=== PATIENT | female | born 1995 | race American Indian/Alaskan Native ===

== ENCOUNTER 2019-02-11 06:28 | Emergency (ER) | payer SELFPAY ==
--- NOTE | 2019-02-11 07:17 | XRay Report ---
CHEST 2 VIEWS, 02/11/2019 6:59 AM INDICATION: Cough. Shortness of breath. COMPARISON: None FINDINGS: Support devices: None Heart: The heart is normal in size. Lungs/pleura: The lungs are clear of focal airspace disease or significant pleural effusion. Additional findings: Evaluation of bony structures demonstrates no evidence of acute bony abnormality . IMPRESSION: 1. No evidence of acute cardiopulmonary process. Signer Name: Bobbi Carbajal MD Signed: 02/11/2019 7:13 AM Workstation Name: [employer]
[2019-02-11] MEDS ORDERED: IPRATROPIUM/ALBUTEROL SULFATE 3 ML AMPUL.NEB IH ONE ×2 (07:51→07:54)
[2019-02-11] MEDS ORDERED: predniSONE 20 MG TAB PO ONE (07:55)
[2019-02-11] MEDS ORDERED: ALBUTEROL 2.5 MG/3 ML NEBU IH ONE (08:33)
--- NOTE | 2019-02-11 08:39 | Emergency Department Report ---
ED Shortness of Breath HPI - General Chief Complaint: Dyspnea/Respdistress Stated Complaint: SOB Time Seen by Provider: 02/11/19 07:55 Source: patient Mode of arrival: Ambulatory Limitations: No Limitations - History of Present Illness Initial Comments: 23 yo obese female c/o cough and sob x 3 days. Reports hx of asthma. Last asthma attack few years ago. Out of her asthma medications. She denies fever chills. Denies any recent surgeries, trauma or travel. MD Complaint: shortness of breath, cough Onset/Timin -: days(s) Pain Scale: 0 Consistency: constant Known History Of: asthma Context: recent URI Associated Symptoms: cough Treatments Prior to Arrival: none - Related Data Home Oxygen Therapy: No Previous Rx's Medication Instructions Recorded Last Taken Type Albuterol Sulfate [Proair 90 mcg IH Q4HR PRN 30 Days #1 02/11/19 Unknown Rx Digihaler] aer.pw.bas predniSONE [Deltasone] 40 mg PO QDAY 3 Days #6 tab 02/11/19 Unknown Rx Allergies Allergy/AdvReac Type Severity Reaction Status Date / Time No Known Allergies Allergy Verified 02/11/19 07:55 ED Review of Systems ROS: Stated complaint: SOB Other details as noted in HPI Comment: All other systems reviewed and negative Respiratory: cough, shortness of breath Cardiovascular: denies: chest pain, palpitations, dyspnea on exertion, orthopnea, edema, syncope Gastrointestinal: as per HPI ED Past Medical Hx - Past Medical History Previous Medical History?: Yes Hx Asthma: Yes - Surgical History Past Surgical History?: No - Social History Smoking Status: Never Smoker Substance Use Type: None - Medications Home Medications: Home Medications Medication Instructions Recorded Confirmed Last Taken Type Albuterol Sulfate [Proair 90 mcg IH Q4HR PRN 30 Days #1 02/11/19 Unknown Rx Digihaler] aer.pw.bas predniSONE [Deltasone] 40 mg PO QDAY 3 Days #6 tab 02/11/19 Unknown Rx ED Physical Exam - General Limitations: No Limitations General appearance: alert, in no apparent distress - Head Head exam: Present: atraumatic - Eye Eye exam: Present: normal appearance. Absent: conjunctival injection - ENT ENT exam: Present: normal orophraynx, mucous membranes moist, TM's normal bilaterally - Neck Neck exam: Present: normal inspection. Absent: lymphadenopathy - Respiratory Respiratory exam: Present: wheezes - Cardiovascular Cardiovascular Exam: Present: regular rate, normal rhythm - Rectal Rectal exam: Present: deferred - Extremities Exam Extremities exam: Present: normal inspection - Back Exam Back exam: Present: normal inspection - Neurological Exam Neurological exam: Present: alert, oriented X3 - Psychiatric Psychiatric exam: Present: normal affect - Skin Skin exam: Present: warm, dry, intact ED Course Vital Signs 02/11/19 02/11/19 06:36 07:56 Temperature 98.7 F Pulse Rate 97 H Respiratory 20 20 Rate Blood Pressure 135/79 [Right] O2 Sat by Pulse 94 94 Oximetry - Reevaluation(s) Reevaluation #1: 02/11/19 08:41 Pt rexamined after duoneb and oral prednisone. She reports feeling better still with inspiratory wheezing. Albuterol 5mg ordered. 02/11/19 10:06 After albuterol 5mg decrease in wheezing. Denies SOB reports improvement. ED Medical Decision Making - Radiology Data Chest xray No evidence of cardiopulmonary processes. - Medical Decision Making 23-year-old female with the past history asthma she presents with complaint of 3 days of coughing feeling short of breath. Her last known asthma attack was 2 years ago. She is currently not on any meds at home. Patient received a total 1 DuoNeb and albuterol 5 mg via nebulizer t and prednisone 60 mg by mouth. She reports improvement repeat assessment of her lungs reveals decreased wheezing she appears comfortable and is in no distress. Plan is for patient to be discharged home with 3 days of prednisone 40 mg daily and albuterol inhaler every 4 when necessary for wheezing and [facility] Critical Care Time: No Critical care attestation.: If time is entered above; I have spent that time in minutes in the direct care of this critically ill patient, excluding procedure time. ED Disposition Clinical Impression: Asthma attack Qualifiers: Asthma severity: mild Asthma persistence: intermittent Qualified Code(s): J45.21 - Mild intermittent asthma with (acute) exacerbation Disposition: TO HOME OR SELFCARE Is pt being admited?: No Does the pt Need Aspirin: No Condition: Stable Instructions: Asthma (ED) Additional Instructions: Follow up with your primary care doctor in 1-2 days or at [facility] [phone]. Return to the ER if you develop difficulty breathing. Take medication as prescribed. Use inhaler as prescribe. Rest and drink clear fluids Prescriptions: predniSONE [Deltasone] 40 mg PO QDAY 3 Days #6 tab Albuterol Sulfate [Proair Digihaler] 90 mcg IH Q4HR PRN 30 Days #1 aer.pw.bas PRN Reason: Wheezing Referrals: PRIMARY CARE, [Primary Care Provider] - 3-5 Days Time of Disposition: 09:35
[2019-02-11 10:07] VITALS: BP 125/75
== END 2019-02-11 10:07 | disposition home or self-care (01) ==
LOC: ED 06:28
DX: J45.901 Unspecified asthma with (acute) exacerbation (principal); Z79.899 Other long term (current) drug therapy
CPT/HCPCS: 71046; 94640; 99283; J7512

== ENCOUNTER 2019-03-22 14:02 | Emergency (ER) | payer SELFPAY ==
[2019-03-22 14:14] VITALS: BP 123/67
--- NOTE | 2019-03-22 14:22 | Emergency Department Report ---
Blank Doc - Documentation Documentation: 23-year-old female that presents with generalized weakness, vaginal bleeding x2 months, and nausea. This initial assessment/diagnostic orders/clinical plan/treatment(s) is/are subject to change based on patient's health status, clinical progression and re- assessment by fellow clinical providers in the ED. Further treatment and workup at subsequent clinical providers discretion. Patient/guardians urged not to elope from the ED as their condition may be serious if not clinically assessed and managed. Initial orders include: 1- Patient sent to [facility] for further evaluation and treatment 2- labs-r/o anemia
[2019-03-22 15:49] LABS: Bilirubin,Urine NEG (Negative); Blood,Urine LG (Negative); Color,Urine Yellow (Yellow); Mucus,Urine FEW /HPF; Protein,Urine <15 mg/dL mg/dL (Negative)
[2019-03-22 15:52] LABS: RBC,Urine > 182.0 /HPF (0.0-6.0)
[2019-03-22 15:54] LABS: HCG Qualitative,Urine Negative (Negative)
[2019-03-22 18:37] LABS: Basophils % (Auto) 0.5 % (0.0-1.8); Eosinophils # (Auto) 0.3 K/mm3 (0.0-0.4); Hematocrit 37.4 % (30.3-42.9); Hemoglobin 12.2 gm/dl (10.1-14.3); Lymphocytes # (Auto) 3.3 K/mm3 (1.2-5.4); Mean Corpuscular HGB Conc 33 % (30-34); Mean Corpuscular Volume 83 fl (79-97); Monocytes # (Auto) 0.8 K/mm3 (0.0-0.8); Monocytes % (Auto) 8.8 % (0.0-7.3); Platelet Count 202 K/mm3 (140-440); Red Cell Distribution Width 14.8 % (13.2-15.2)
--- NOTE | 2019-03-22 18:54 | Emergency Department Report ---
ED Female HPI - General Chief complaint: Vaginal Bleeding Stated complaint: VAG BLEEDING/ABD PAIN Time Seen by Provider: 03/22/19 14:20 Source: patient Mode of arrival: Ambulatory Limitations: No Limitations - History of Present Illness Initial comments: Patient is a nulliparous 23-year-old -[place] female with no past medical history presents to the ED with content of acute onset persistent pelvic cramps with heavy vaginal bleeding for the last 2 months. Patient states that the bleeding is heavy and sometimes she has to use up to 3 pads in a day. Patient states that she has never been on any contraceptive medications and that she has only been sexually active in the last 3 years. Patient denies dizziness, fever, chills, nausea, vomiting, diarrhea, low back pain, change in vision, dysuria, urinary frequency and urgency, vaginal discharge, syncope or generalized weakness, chest pain or shortness of breath. MD Complaint: vaginal bleeding, pelvic pain (menstrual cramps) -: Gradual, month(s) (2) Location: suprapubic Radiation: non-radiating Severity: moderate Severity scale (0 -10): 4 Quality: cramping, aching Consistency: constant Improves with: none Worsens with: none Are you Now?: No Last Menstrual Period: 01/31/19 EDC: 11/07/19 Associated Symptoms: denies other symptoms, vaginal bleeding, abdominal pain (suprapubic). denies: vaginal discharge, nausea/vomiting, fever/chills, headaches, loss of appetite, dysuria, hematuria, rash, seizure, shortness of breath, syncope, weakness - Related Data Sexually active: Yes : 0 Para: 0 A: 0 Previous Rx's Medication Instructions Recorded Last Taken Type Albuterol Sulfate [Proair 90 mcg IH Q4HR PRN 30 Days #1 02/11/19 Unknown Rx Digihaler] aer.pw.bas predniSONE [Deltasone] 40 mg PO QDAY 3 Days #6 tab 02/11/19 Unknown Rx Naproxen 500 mg PO Q12H PRN #24 tablet 03/22/19 Unknown Rx medroxyPROGESTERone ACETATE 10 mg PO DAILY #10 tablet 03/22/19 Unknown Rx [Medroxyprogesterone Acetate] Allergies Allergy/AdvReac Type Severity Reaction Status Date / Time No Known Allergies Allergy Verified 01/06/20 14:04 ED Review of Systems ROS: Stated complaint: VAG BLEEDING/ABD PAIN Other details as noted in HPI Constitutional: denies: chills, fever Eyes: denies: eye pain, eye discharge, vision change ENT: denies: ear pain, throat pain Respiratory: denies: cough, shortness of breath, wheezing Cardiovascular: denies: chest pain, palpitations Endocrine: no symptoms reported Gastrointestinal: abdominal pain (suprapubic pain). denies: nausea, vomiting, diarrhea, hematemesis, melena, other Genitourinary: abnormal menses (heavy vaginal bleeding). denies: urgency, dysuria, discharge Musculoskeletal: denies: back pain, joint swelling, arthralgia Skin: denies: rash, lesions Neurological: denies: headache, weakness, paresthesias Psychiatric: denies: anxiety, depression Hematological/Lymphatic: denies: easy bleeding, easy bruising ED Past Medical Hx - Past Medical History Previous Medical History?: Yes Hx Asthma: Yes - Surgical History Past Surgical History?: No - Social History Smoking Status: Never Smoker Substance Use Type: None - Medications Home Medications: Home Medications Medication Instructions Recorded Confirmed Last Taken Type Albuterol Sulfate [Proair 90 mcg IH Q4HR PRN 30 Days #1 02/11/19 Unknown Rx Digihaler] aer.pw.bas predniSONE [Deltasone] 40 mg PO QDAY 3 Days #6 tab 02/11/19 Unknown Rx Naproxen 500 mg PO Q12H PRN #24 tablet 03/22/19 Unknown Rx medroxyPROGESTERone ACETATE 10 mg PO DAILY #10 tablet 03/22/19 Unknown Rx [Medroxyprogesterone Acetate] ED Physical Exam - General Limitations: No Limitations General appearance: alert, in no apparent distress - Head Head exam: Present: atraumatic, normocephalic, normal inspection - Eye Eye exam: Present: normal appearance, PERRL, EOMI Pupils: Present: normal accommodation - ENT ENT exam: Present: normal exam, normal orophraynx, mucous membranes moist, TM's normal bilaterally, normal external ear exam - Neck Neck exam: Present: normal inspection, full ROM. Absent: tenderness, lymphadenopathy - Respiratory Respiratory exam: Present: normal lung sounds bilaterally. Absent: respiratory distress, wheezes, rales, rhonchi, chest wall tenderness, accessory muscle use, decreased breath sounds - Cardiovascular Cardiovascular Exam: Present: regular rate, normal rhythm, normal heart sounds. Absent: systolic murmur, diastolic murmur, rubs, gallop - GI/Abdominal GI/Abdominal exam: Present: soft, tenderness (mild suprapubic tenderness), normal bowel sounds. Absent: distended, guarding, rebound, hyperactive bowel sounds, hypoactive bowel sounds, organomegaly, mass - Extremities Exam Extremities exam: Present: normal inspection, full ROM, normal capillary refill - Back Exam Back exam: Present: normal inspection, full ROM. Absent: tenderness, CVA tenderness (R), CVA tenderness (L), muscle spasm, paraspinal tenderness, vertebral tenderness - Neurological Exam Neurological exam: Present: alert, oriented X3, CN II-XII intact, normal gait, reflexes normal - Psychiatric Psychiatric exam: Present: normal affect, normal mood - Skin Skin exam: Present: warm, dry, intact, normal color. Absent: rash ED Course Vital Signs 03/22/19 14:12 Temperature 98.7 F Pulse Rate 81 Respiratory 16 Rate Blood Pressure 123/67 O2 Sat by Pulse 91 Oximetry ED Medical Decision Making - Lab Data Result diagrams: 03/22/19 18:17 - Medical Decision Making This is a nulliparous 23-year-old -[place] female who presented to the ED with persistent heavy vaginal bleeding with menstrual cramps for 2 months. In the ED, patient is alert and oriented 3 and is not in distress. Lab test results were reviewed and are nonactionable including a negative hCG test. Patient's symptoms are likely due to dysfunctional uterine bleeding since the patient is not on control. Patient was discharged home on medroxyprogesterone acetate 10 mg daily for 10 days and naproxen 500 mg every 12 hours as needed for pain. Patient was advised to follow-up with his her [employer] physician in 7-10 days for reevaluation or return to the ED immediately if symptoms get worse. - Differential Diagnosis Dysfunctional uterine bleeding; UTI; ; Ovarian cyst Critical care attestation.: If time is entered above; I have spent that time in minutes in the direct care of this critically ill patient, excluding procedure time. ED Disposition Clinical Impression: Dysfunctional uterine hemorrhage, Menstrual cramps Disposition: TO HOME OR SELFCARE Is pt being admited?: No Does the pt Need Aspirin: No Condition: Stable Instructions: Dysmenorrhea (ED), Dysfunctional Uterine Bleeding (ED), Menorrhagia (ED) Additional Instructions: Take medication with food, drink plenty of fluids and follow-up with your [employer] physician in 7-10 days for reevaluation. Return to the ED immediately if symptoms get worse. Prescriptions: medroxyPROGESTERone ACETATE [Medroxyprogesterone Acetate] 10 mg PO DAILY #10 tablet Naproxen 500 mg PO Q12H PRN #24 tablet PRN Reason: Pain , Severe (7-10) Referrals: CHRIS MATT MD [Staff Physician] - 7-10 days Time of Disposition: 18:55 Print Language: GREENLANDIC
== END 2019-03-22 19:10 | disposition home or self-care (01) ==
LOC: ED 14:02
DX: N93.8 Other specified abnormal uterine and vaginal bleeding (principal); N94.6 Dysmenorrhea, unspecified; J45.909 Unspecified asthma, uncomplicated
CPT/HCPCS: 36415; 81001; 81025; 85025